=== PATIENT | female | born 1960 | race Caucasian/White ===

== ENCOUNTER 2016-06-26 04:52 | Emergency (ER) | payer OTHER ==
[~2016-06-26] VITALS: Ht 165.1 cm; Wt 61.0 kg
[2016-06-26 04:54] VITALS: BP 120/83
[2016-06-26] MEDS ORDERED: FLUORESCEIN OPHTHALMIC 1 MG STRIP ONE (05:04)
== END 2016-06-26 05:57 | disposition home or self-care (01) ==
LOC: ED 05:45
DX: S05.01XA Injury of conjunctiva and corneal abrasion without foreign body, right eye, initial encounter (principal); Z86.73 Personal history of transient ischemic attack (TIA), and cerebral infarction without residual deficits; X58.XXXA Exposure to other specified factors, initial encounter; Y93.89 Activity, other specified; Y92.89 Other specified places as the place of occurrence of the external cause; Y99.8 Other external cause status
CPT/HCPCS: 99284

== ENCOUNTER → 2016-09-08 | Outpatient (CLI) | payer OTHER | END | disposition home or self-care (01) | LOC: PETCFH 10:35 | PROVIDERS: ATTEND Internal Medicine | DX: E04.1 Nontoxic single thyroid nodule (principal) | CPT/HCPCS: 78013; A9516 ==

== ENCOUNTER → 2018-12-28 | Outpatient (CLI) | payer OTHER | END | disposition home or self-care (01) | LOC: CFH 14:52 | PROVIDERS: ATTEND Internal Medicine | DX: M47.896 Other spondylosis, lumbar region (principal); M51.36 Other intervertebral disc degeneration, lumbar region; M53.2X6 Spinal instabilities, lumbar region; R05 Cough | CPT/HCPCS: 71046; 72100 ==